=== PATIENT | male | born 1950 | race Caucasian/White ===

== ENCOUNTER 2017-01-20 09:35 | Day surgery (SDC) | payer OTHER ==
[~2017-01-20] VITALS: Ht 177.8 cm; Wt 87.0 kg
[~2017-01-20 09:35] MED LIST: FLUT15.88 NS; SIMV40TA5 PO; Sodium Chloride LOK Flush 10 mL Syringe IV PRN; TOBR5DRO OP; ZOLP10TA5 PO; fentaNYL-PF 50 mCg/mL 2 mL Inj IVPUSH PRN
[2017-01-20 10:40] VITALS: BP 125/76; PULSE 73; RESP 16; O2SAT 97
[2017-01-20] MEDS: 0.9% Sodium Chloride 1,000 ML IV SCH ×2 (11:07→11:09)
[2017-01-20 11:31] VITALS: BP 142/80; PULSE 65; RESP 16; O2SAT 95
[2017-01-20 11:41] VITALS: BP 147/81; PULSE 65; RESP 16; O2SAT 94
[2017-01-20 11:47] VITALS: BP 133/80; PULSE 75; RESP 16; O2SAT 98
--- NOTE | 2017-01-20 12:00 | ENDO ---
[address] [address] ENDOSCOPY PROCEDURE PATIENT: AMANDA CASTRO : 1950 MR#: [id number] ADMIT: 01/20/2017 JOB ID: [id number] CORRECTED REPORT: PROCEDURE: Colonoscopy. INDICATION: Screening. ANESTHESIA: Patient's ASA classification is one. Mallampati score is two. MEDICATIONS: 1. Versed 5 mg. 2. Fentanyl 100 mcg. INSTRUMENT USED: PCF-[id number]. PREPARATION QUALITY: Good. PROCEDURE DETAILS: After informed consent was obtained, the patient was brought to the GI suite, where he was placed on oxygen via nasal cannula and monitored with continuous pulse oximeter, telemetry, and blood pressure monitoring. A time-out was performed, then he was placed in the left lateral decubitus position and medications were administered for sedation. A digital rectal exam with palpation of the prostate was performed, which was unremarkable. The colonoscope was then inserted into the rectum and advanced under direct visualization to the cecum, which identified by the presence of the ileocecal valve and appendiceal orifice. Once the cecum was reached, the colonoscope was withdrawn back into the rectum as the mucosa and lumen were examined. In the rectum, retroflexion was performed. Following retroflexion, the remaining air in the rectum was suctioned and the procedure was completed. FINDINGS: 1. In the ascending colon, there were five polyps that ranged in size from 4 mm to diminutive. The polyps were removed with a combination of cold snare and cold biopsy forceps. 2. In the transverse colon, there was an approximately 3-4 mm polyp that was removed with a cold snare. 3. In the rectum there was an approximately 4 mm sessile polyp that was removed with a cold snare. 4. Scattered diverticula were seen throughout the left side of the colon. 5. Retroflexed views in the rectum revealed prominent anal papillae. IMPRESSION: 1. Five ascending colon polyps. 2. Transverse colon polyp. 3. Rectal polyp. 4. Left-sided diverticulosis. 5. Prominent anal papillae. RECOMMENDATIONS: 1. Fiber rich diet. 2. Repeat colonoscopy in three years. COMPLICATIONS: None. ESTIMATED BLOOD LOSS: Less than 5 mL. Corrected by GS 01/28/17 at 10:42am Corrected patient.
--- NOTE | 2017-01-21 14:50 | PATH ---
SURGICAL PATHOLOGY Attending Physician:Humble Mixon CASE STATUS: Signed Out PATIENT NAME: AMANDA CASTRO PID: [id number] : 1950 DATE COLLECTED:01/20/2017 21:54 SPECIMEN: 1: Colon, Biopsy 2: Colon, Biopsy 3: Rectum, Biopsy CLINICAL HISTORY: SCREENING, COLON POLYPS 1). ASCENDING COLON POLYPS X5 2). TRANSVERSE COLON POLYP 3). RECTAL POLYP FINAL DIAGNOSIS: 1. 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 2. Transverse Colon Polyp: Sessile serrated adenoma. 3. Rectal Polyp: Hyperplastic polyp. ICD10 D12.3 GROSS DESCRIPTION: The specimen is received in three formalin filled containers labeled with the patient's name. 1). The specimen is sublabeled "ascending colon polyps x5" and consists of multiple portions of tissue which aggregate to 0.5 x 0.5 x 0.3 CM. The specimen is entirely submitted in cassette 1A. 2). The specimen is sublabeled "transverse colon polyps" and consists of 2 portions of tissue which aggregate to 0.3 x 0.3 x 0.2 CM. The specimen is entirely submitted in cassette 2A. 3). The specimen is sublabeled "rectal polyp" and consists of a 0.4 x 0.3 x 0.2 CM portion of tissue which is entirely submitted in cassette 3A. 01/20/2017 [facility] ICD-9 CODES: CPT CODES: 1: 07900 2: 21004 3: 33044 Electronically Signed Out Can Romo MD [facility] [address], [place] [address] Technical component performed at [facility], [facility] [address], [address]
== END 2017-01-20 23:59 | disposition home or self-care (01) ==
LOC: END 09:35
PROVIDERS: ATTEND Internal Medicine Gastroenterology
DX: Z12.11 Encounter for screening for malignant neoplasm of colon (principal); D12.2 Benign neoplasm of ascending colon; D12.3 Benign neoplasm of transverse colon; K62.1 Rectal polyp; K57.30 Diverticulosis of large intestine without perforation or abscess without bleeding; F17.210 Nicotine dependence, cigarettes, uncomplicated
CPT/HCPCS: 45380; 45385; 99153; G0500; J2250; J3010; J7030